=== PATIENT | male | born 1995 | race Two or more races ===

== ENCOUNTER 2025-06-23 15:51 | Inpatient (IN) | payer MEDICAID ==
[~2025-06-23] VITALS: Ht 175.3 cm; Wt 81.6 kg
[2025-06-23] MEDS ORDERED: LORAZEPAM INJ 2 MG/ML VIAL ONE (16:55)
[2025-06-23] MEDS: IV NS 0.9% 1,000 ML BAG IV ONE (17:00)
[2025-06-23] MEDS: LORAZEPAM INJ 2 MG/ML VIAL IV ONE ×2 (17:00→18:24)
[2025-06-23] MEDS: TDAP [DIPH/PERTUSSIS/TET] 0.5 ML VIAL IM ONE (17:00)
[2025-06-23] MEDS ORDERED: TDAP [DIPH/PERTUSSIS/TET] 0.5 ML VIAL IM ONE (17:00)
[2025-06-23 17:12] LABS: RED BLOOD CELL COUNT(AUTO) 5.55 MIL/uL (4.5-6.0); RED CELL DISTRIBUTION WIDTH 13.0 % (11.5-15.0); WHITE BLOOD COUNT (AUTO) 6.8 K/uL (4.3-11.0)
[2025-06-23 17:15] LABS: PLATELET COUNT (AUTO) 48 K/uL (150-450)
[2025-06-23 17:17] LABS: CALCIUM, SERUM 8.5 mg/dL (8.5-10.1); CREATININE 0.6 mg/dL (0.6-1.3); SODIUM SERUM 131.0 mmol/L (136-145); UREA NITROGEN, BLOOD 9.0 mg/dL (7-18)
[2025-06-23 17:22] LABS: ASPARTATE AMINOTRANSFERASE 180.0 U/L (15-37); TOTAL PROTEIN, SERUM 7.5 g/dL (6.4-8.2)
[2025-06-23 18:08] LABS: INR 1.39 (0.91-1.10)
[2025-06-23 18:12] LABS: BASOPHILS % (MANUAL) 0 % (0.0-2.0); EOSINOPHILS % (MANUAL) 0 % (0-4); LYMPHOCYTES % (MANUAL) 13 % (16-48); MONOCYTES % (MANUAL) 9 % (0-11.0); NEUTROPHILS % (MANUAL) 78 (42-76); PLATELET ESTIMATE DECREASED
[2025-06-23 19:14] LABS: APPEARANCE,URINE CLEAR (CLEAR); BLOOD, URINE Trace-lysed Ery/uL (NEGATIVE); LEUKOCYTE ESTERASE ,URINE Negative (NEGATIVE); UGLUCOSE Negative (NEGATIVE)
[2025-06-23 19:15] LABS: ADD URINE CULTURE NO; NITRITE, URINE NEGATIVE (NEGATIVE); SQUAMOUS EPITHELIAL CELL,UR Rare /HPF (None Seen)
[2025-06-23 19:21] LABS: AMPHETAMINE, URINE NEGATIVE (NEGATIVE); BARBITURATE, URINE NEGATIVE (NEGATIVE); BENZODIAZEPINE, URINE NEGATIVE (NEGATIVE); CANNABINOID, URINE NEGATIVE (NEGATIVE); COCCAINE, URINE NEGATIVE (NEGATIVE); OPIATE, URINE NEGATIVE (NEGATIVE)
[2025-06-23] MEDS ORDERED: MAG HYDROX/AL HYDROX/SIMETH 30 ML UDC PO PRN (20:00)
[2025-06-23] MEDS ORDERED: DEXTROSE 50%-WATER 50 ML DISP.SYRIN IV PRN (20:00)
[2025-06-23] MEDS ORDERED: LORAZEPAM INJ 2 MG/ML VIAL IV PRN ×2 (20:00)
[2025-06-23] MEDS ORDERED: MAGNESIUM HYDROXIDE 30 ML UDC PO PRN (20:00)
[2025-06-23] MEDS: IV NS 0.9% 1,000 ML IV SCH (20:10)
[2025-06-23 22:41] VITALS: BP 135/92; TEMP 99; O2SAT 98
[2025-06-23 23:00] VITALS: BP 135/92; TEMP 99; O2SAT 98
[2025-06-23] MEDS: ONDANSETRON HCL/PF 4 MG/2 ML VIAL IVP PRN (23:28)
[2025-06-23] MEDS: Thiamine 100 MG in IV D5W 50 ML IV ONE (23:38)
[2025-06-24] VITALS (10 sets, daily range): BP systolic 120–132; BP diastolic 76–93; TEMP 98.6–99.7; O2SAT 95–98
[2025-06-24] MEDS: BLOOD SUGAR DIAGNOSTIC 1 EACH STRIP IN SCH (00:01)
[2025-06-24] MEDS: MULTIVITAMINS,THERAGRAN 1 UDTAB TABLET PO SCH (00:11)
[2025-06-24] MEDS: FOLIC ACID 1 MG TABLET PO SCH (00:11)
[2025-06-24] MEDS: LORAZEPAM 0.5 MG TABLET PO PRN (01:27)
[2025-06-24] MEDS ORDERED: LORAZEPAM INJ 2 MG/ML VIAL IM PRN ×2 (02:00→05:00)
[2025-06-24 06:54] LABS: RED BLOOD CELL COUNT(AUTO) 5.08 MIL/uL (4.5-6.0); RED CELL DISTRIBUTION WIDTH 13.1 % (11.5-15.0); WHITE BLOOD COUNT (AUTO) 5.2 K/uL (4.3-11.0)
[2025-06-24 06:58] LABS: CALCIUM, SERUM 7.7 mg/dL (8.5-10.1); CREATININE 0.7 mg/dL (0.6-1.3); PHOSPHORUS 3.9 mg/dL (2.5-4.9); SODIUM SERUM 133.0 mmol/L (136-145); UREA NITROGEN, BLOOD 10.0 mg/dL (7-18)
[2025-06-24 07:02] LABS: PLATELET COUNT (AUTO) 31 K/uL (150-450)
[2025-06-24] MEDS: PANTOPRAZOLE 40 MG TABLET.DR PO SCH (08:14)
[2025-06-24 10:06] LABS: BASOPHILS % (MANUAL) 0 % (0.0-2.0); EOSINOPHILS % (MANUAL) 0 % (0-4); LYMPHOCYTES % (MANUAL) 25 % (16-48); MONOCYTES % (MANUAL) 6 % (0-11.0); NEUTROPHILS % (MANUAL) 69 (42-76); PLATELET ESTIMATE DECREASED
[2025-06-24 11:10] LABS: URINE SODIUM, RANDOM 160 mmol/l (40-220)
[2025-06-24] MEDS: IBUPROFEN 600 MG TABLET PO PRN (15:50)
[2025-06-24 21:04] LABS: OSMOLALITY,URINE 637 mOS/kg (340-1090)
[2025-06-24] MEDS: INSULIN REGULAR, HUMAN 100 UNIT/ML 3 ML VIAL SQ PRN (22:16)
[2025-06-25] VITALS (8 sets, daily range): BP systolic 119–134; BP diastolic 78–90; TEMP 97.7–98.6; O2SAT 96–100
[2025-06-25] MEDS ORDERED: LORAZEPAM 0.5 MG TABLET ONE (05:30)
[2025-06-25 06:07] LABS: RED BLOOD CELL COUNT(AUTO) 4.56 MIL/uL (4.5-6.0); RED CELL DISTRIBUTION WIDTH 13.2 % (11.5-15.0); WHITE BLOOD COUNT (AUTO) 4.1 K/uL (4.3-11.0)
[2025-06-25 06:15] LABS: PLATELET COUNT (AUTO) 26 K/uL (150-450)
[2025-06-25 06:32] LABS: CALCIUM, SERUM 8.0 mg/dL (8.5-10.1); CREATININE 0.7 mg/dL (0.6-1.3); SODIUM SERUM 136.0 mmol/L (136-145); UREA NITROGEN, BLOOD 8.0 mg/dL (7-18)
[2025-06-25 08:30] LABS: EOSINOPHILS % (MANUAL) 2 % (0-4); LYMPHOCYTES % (MANUAL) 21 % (16-48); MONOCYTES % (MANUAL) 9 % (0-11.0); NEUTROPHILS % (MANUAL) 68 (42-76); PLATELET ESTIMATE DECREASED
[2025-06-25] MEDS: TRAMADOL HCL 50 MG TABLET PO PRN (08:40)
[2025-06-25] MEDS: LORAZEPAM 1 MG TABLET PO PRN (09:20)
[2025-06-25] MEDS: IV NS 0.9% 1,000 ML IV PRN (22:30)
[2025-06-26 01:25] VITALS: BP 115/76; TEMP 98.8; O2SAT 97
[2025-06-26 04:27] VITALS: BP 124/77; TEMP 98.2; O2SAT 100
[2025-06-26 08:38] VITALS: BP 124/82; TEMP 98.4; O2SAT 99
[2025-06-26 10:33] LABS: CALCIUM, SERUM 8.7 mg/dL (8.5-10.1); CREATININE 0.7 mg/dL (0.6-1.3); SODIUM SERUM 139.0 mmol/L (136-145); UREA NITROGEN, BLOOD 4.0 mg/dL (7-18)
[2025-06-26 10:42] LABS: RED BLOOD CELL COUNT(AUTO) 4.82 MIL/uL (4.5-6.0); RED CELL DISTRIBUTION WIDTH 13.2 % (11.5-15.0); WHITE BLOOD COUNT (AUTO) 4.1 K/uL (4.3-11.0)
[2025-06-26 11:02] LABS: PLATELET COUNT (AUTO) 44 K/uL (150-450)
[2025-06-26] MEDS: THIAMINE HCL 100 MG TABLET PO SCH (11:26)
[2025-06-26] MEDS ORDERED: THIA100T88 PO (11:33)
[2025-06-26 11:39] LABS: IRON, SERUM 41.0 ug/dl (50-175)
[2025-06-26 13:48] LABS: FIBRINOGEN ACTIVITY 239 Mg/dL (213-485); INR 1.04 (0.91-1.10)
[2025-06-26 14:46] LABS: HIV-1/2 ANTIBODY NON REACTIVE (NONREACTIVE)
[2025-06-26 15:16] LABS: EOSINOPHILS % (MANUAL) 2 % (0-4); LYMPHOCYTES % (MANUAL) 19 % (16-48); MONOCYTES % (MANUAL) 10 % (0-11.0); NEUTROPHILS % (MANUAL) 69 (42-76); PLATELET ESTIMATE DECREASED
[2025-06-26 15:23] LABS: RHEUMATOID FACTOR SCREEN NEGATIVE (NEGATIVE)
[2025-06-26 16:03] VITALS: BP 102/90; TEMP 98.2; O2SAT 94
[2025-06-28 04:07] LABS: FREE KAPPA LT CHAINS SERUM 16.2 mg/L (3.3-19.4); FREE LAMBDA LT CHAIN SERUM 18.8 mg/L (5.7-26.3); HEPATITIS B CORE AB, TOTAL Negative (Negative); HEPATITIS B SURFACE AB (QUAL) Non Reactive (.); KAPPA/LAMBDA RATIO SERUM 0.86 (0.26-1.65)
[2025-06-28 05:09] LABS: FOLIC ACID > 20.0 ng/mL (>3.0); IMMUNOGLOBULIN A, SERUM 436 mg/dL (90-386); IMMUNOGLOBULIN M, SERUM 92 mg/dL (20-172)
[2025-06-28 17:12] LABS: *ANA ANTI-CENTROMERE B AB <0.2 AI (0.0-0.9); *ANA ANTI-DNA(DS) AB, QN <1 IU/mL (0-9); *ANA ANTI-JO-1 <0.2 AI (0.0-0.9); *ANA ANTICHROMATIN ANTIBODY <0.2 AI (0.0-0.9); *ANA RNP ANTIBODIES 0.5 AI (0.0-0.9); *ANA SJOGREN'S ANTI-SS-A <0.2 AI (0.0-0.9); *ANA SJOGREN'S ANTI-SS-B <0.2 AI (0.0-0.9); *ANAANTI-SCLERODERMA-70 AB <0.2 AI (0.0-0.9); *ANASMITH AB <0.2 AI (0.0-0.9)
== END 2025-06-26 17:33 | disposition home or self-care (01) | DRG 661 ==
LOC: ER 16:02 → TELE1 20:10 → TELE 21:20
PROVIDERS: ADMIT Registered Nurse Psychiatric/Mental Health; ATTEND Nurse Practitioner Acute Care
PROC: 30233R1 Transfusion of Nonautologous Platelets into Peripheral Vein, Percutaneous Approach (ICD-10-PCS; principal; 2025-06-24)
DX: D69.59 Other secondary thrombocytopenia (principal); E87.1 Hypo-osmolality and hyponatremia; E11.65 Type 2 diabetes mellitus with hyperglycemia; E80.6 Other disorders of bilirubin metabolism; D72.819 Decreased white blood cell count, unspecified; D61.818 Other pancytopenia; E86.1 Hypovolemia; F10.139 Alcohol abuse with withdrawal, unspecified; K70.9 Alcoholic liver disease, unspecified; Y90.6 Blood alcohol level of 120-199 mg/100 ml; R74.01 Elevation of levels of liver transaminase levels; S91.111A Laceration without foreign body of right great toe without damage to nail, initial encounter; X58.XXXA Exposure to other specified factors, initial encounter; Y93.9 Activity, unspecified; Y92.89 Other specified places as the place of occurrence of the external cause
CPT/HCPCS: 36415; 71045-TC; 76705-TC; 80048-TC; 80076-TC; 81001; 82607-TC; 82728-TC; 82784; 82962-TC; 83540-TC; 83690-TC; 83735-TC; 83935-TC; 84100-TC; 84155; 84165; 84300-TC; 84443-TC; 85027-TC; 85396; 85610-TC; 86225; 86235; 86334; 86431-TC; 86704; 86706; 86803; 86850-TC; 87081-TC; 87340; 87806; 90715; 97110-TC; 97116-TC; 97530-TC; A4223; G0378; G0480; J1815; J2060; J2405; J3411; J7030; J7060; P9034